=== PATIENT | female | born 1940 | race Caucasian/White ===

== ENCOUNTER 2019-05-13 00:39 | Inpatient (IN) ==
--- NOTE | 2019-05-13 00:49 | EKG Report ---
Test Performed on : 05/13/2019 00:47:29 AM Test Reason : SHORTNESS OF BREATH Blood Pressure : / mmHG Vent. Rate : 083 BPM Atrial Rate : 083 BPM P-R Int : 138 ms QRS Dur : 076 ms QT Int : 358 ms P-R-T Axes : 025 057 045 degrees QTc Int : 420 ms Normal sinus rhythm. Nonspecific ST abnormality Abnormal ECG When compared with ECG of 18-MAY-2018 19:58, QT has shortened Unconfirmed Result
[2019-05-13] MEDS ORDERED: DUONEB (A & A) INH ONE (01:06)
[2019-05-13] MEDS ORDERED: TESSALON PO ONE (01:06)
[2019-05-13] MEDS ORDERED: SOLU-MEDROL IV ONE (01:06)
[2019-05-13] MEDS ORDERED: FENTANYL IV ONE (01:07)
[2019-05-13 01:44] LABS: BASO# 0.04 X1000 (0.0-0.2); BASO% 0.3 % (0.0-0.8); EOS% 0.6 % (0.0-10.0); HEMATOCRIT 40.7 % (37.0-47.0); HEMOGLOBIN 12.5 g/dL (12.0-16.0); IMM GRAN# 0.03 X1000 (0.0-0.04); IMM GRAN% 0.2 % (0.0-0.5); LYMPH# 1.25 X1000 (1.2-3.4); MCH 27.2 PG (27-31); MCHC 30.7 g/dL (33-37); MCV 88.7 FL (81-99); MONO# 0.92 X1000 (0.11-0.59); MONO% 5.9 % (1.7-9.3); MPV 11.2 FL (7.4-10.4); NEUT# 13.27 X1000 (1.4-6.5); PLT 181 X1000 (130-400); RBC 4.59 XMIL (4.2-5.4); WBC 15.61 X1000 (4.8-10.8)
[2019-05-13 02:19] LABS: ALB/GLOB RATIO 1.6; ALBUMIN 4.2 g/dL (3.5-5.0); CALCIUM 9.3 mg/dL (8.8-10.2); CREATININE 1.3 mg/dL (0.5-0.9); POTASSIUM 5.5 mmol/L (3.5-5.1); TOTAL BILIRUBIN 0.84 mg/dL (0.20-1.00); TOTAL PROTEIN 6.8 g/dL (6.3-8.3)
[2019-05-13] MEDS ORDERED: ROCEPHIN 1 GM in NS 50 ML IV ONE (02:54)
--- NOTE | 2019-05-13 02:54 | PROVIDER DOCUMENTATION ---
This chart was entered by Sandy Deleon Scribe, acting as scribe for Mj Pena MD. HPI-Respiratory General - General Chief Complaint: Shortness of Breath Stated Complaint: CHILLS, COUGH WITH BLOOD, CHEST HURTS Time Seen by Provider: 05/13/19 01:04 Source: patient Allergies/Adverse Reactions: Patient Allergies Allergy/AdvReac Type Severity Reaction Status Date / Time codeine [Codeine] Allergy Mild Unknown Verified 10/29/18 12:36 Home Medications: Home Medication List Medication Instructions Recorded Confirmed Last Taken Type Levothyroxine [Synthroid] 100 microgm PO AC 07/12/12 10/29/18 05/18/18 History Metoprolol [Lopressor] 50 mg PO DAILY 07/12/12 10/29/18 05/18/18 History Allopurinol [Zyloprim] 100 mg PO DAILY tablet 05/19/18 10/29/18 Unknown Rx Amlodipine Besylate 1 tab PO QHS 10/29/18 10/29/18 Unknown History Bupropion HCl [Bupropion HCl Sr] 1 tab PO QAM 10/29/18 10/29/18 Unknown History Celecoxib 1 cap PO QAM 10/29/18 10/29/18 Unknown History Furosemide 20 mg PO DAILY 10/29/18 10/29/18 Unknown History Metformin HCl 1 tab PO QAM 10/29/18 10/29/18 Unknown History Potassium Chloride E.r. [Klor-Con] 20 meq PO DAILY 10/29/18 10/29/18 Unknown History - History of Present Illness-Resp Nature of Presenting Problem: 79yof presents to ED cc SOB, cough with blood sputum, chest pain that radiates to neck, shoulder and upper back since about 1130pm. Pt has no respiratory hx and stopped smoking years ago. Pt is afebrile upon exam. Quality of Pain: reports: sharp Severity in ED: reports: mild, moderate Onset/Duration: reports: 1-3 hours ago Timing: reports: still present, changing over time Cough Quality/Degree: reports: mild, blood streaked sputum Current Respiratory Medication Therapy: Initiated see nurses note Modifying Factors: worse with: coughing, deep breath Associated Symptoms: reports: chest pain/soreness, cough, hurts to breathe, shortness of breath, wheezing Similar Symptoms Previously?: No Recently seen or treated by another doctor?: No Review of Systems - Adult - REVIEW OF SYSTEMS - ADULT Constitutional: reports: see HPI. denies: chills, fever, fatique Eyes: reports: no symptoms reported Ears, Nose, Mouth & Throat: reports: no symptoms reported Cardiovascular: reports: see HPI, chest pain. denies: palpitations Respiratory: reports: see HPI, cough, shortness of breath, wheezing Gastrointestinal: reports: no symptoms reported Genitourinary: reports: no symptoms reported Musculoskeletal: reports: see HPI, joint pain (left shoulder), neck pain Integumentary: reports: no symptoms reported Neurological: reports: no symptoms reported Psychiatric: reports: no symptoms reported Endocrine: reports: no symptoms reported Hematologic/Lymphatic: reports: no symptoms reported Allergic/Immunologic: reports: no symptoms reported All Other Systems: Reviewed and Negative Past History - Adult - PAST MEDICAL HISTORY-ADULT Review of Records: reports: Nursing Assessment Review, Medications Reviewed, Social history reviewed & non-contributory. Major Childhood Illnesses: reports: denies history Cardiovascular: reports: denies history Respiratory: reports: denies history Gastrointestinal: reports: denies history Obstetrical/Gynecological: reports: denies history Genitourinary: reports: denies history Musculoskeletal: reports: denies history Neurological: reports: denies history Psychiatric: reports: denies history Endocrine/Immune: reports: denies history Other Conditions: reports: denies history - IMMUNIZATION STATUS Childhood Immunizations: See Nurse Assessment Flu Vaccine: See Nurse Assessment - FAMILY HISTORY Family History: reviewed, not pertinent - SOCIAL HISTORY Smoking: quit greater than 1 year Physical Exam-General - PHYSICAL EXAM-ADULT Initial Vital Signs Reviewed: Yes - CONSTITUTIONAL General Appearance: alert, mild distress. negative: anxious, combative - EYES Eyes: PERRL/EOMI, pink conjunctivae. negative: photophobia - HEAD, EARS, NOSE, MOUTH & THROAT HENMT: normocephalic/atraumatic, moist mucous membranes. negative: angioedema - RESPIRATORY Respiratory: chest non-tender, normal breath sounds, wheezing - CARDIOVASCULAR Cardiovascular: normal peripheral pulses, regular rate, rhythm, no edema. neg ative: bradycardia, tachycardia - GASTROINTESTINAL (ABDOMEN) Abdominal Exam: normal bowel sounds, non tender, soft. negative: rebound - MUSCULOSKELETAL Back Exam: normal inspection, no CVA tenderness, no vertebral tenderness Extremity: normal inspection. negative: deformity - SKIN Integumentary: normal color. negative: diaphoresis, jaundice - PSYCHIATRIC Psych/Mental Status: normal mood/affect, oriented x 3. negative: anxious, disheveled - HEART Score HEART Score: History: Moderately Suspicious HEART Score: ECG: Non-Specific Repolarization Disturbance/LBBB/PM HEART Score: Age: > or = 65 Years HEART Score: Risk Factors for Atherosclerotic Disease: 1 or 2 Risk Factors Progress - PLAN OF CARE/RESULTS Progress/Plan/Lab Results: Vital Signs - 8 hr 05/13/19 01:09 05/13/19 01:19 Temperature 98.6 F Pulse Rate 85 87 Respiratory Rate 33 H 16 Blood Pressure 181/133 O2 Sat by Pulse Oximetry 92 L 92 L Laboratory Results - last 24 hr 05/13/19 05/13/19 05/13/19 01:25 01:25 01:25 WBC 15.61 H RBC 4.59 Hgb 12.5 Hct 40.7 MCV 88.7 MCH 27.2 MCHC 30.7 L RDW Std Deviation 17.0 H Plt Count 181 MPV 11.2 H Immature Gran % (Auto) 0.2 Neut % (Auto) 85.0 H Lymph % (Auto) 8.0 L Perkins % (Auto) 5.9 Eos % (Auto) 0.6 Baso % (Auto) 0.3 Immature Gran # (Auto) 0.03 Neut # (Auto) 13.27 H Lymph # (Auto) 1.25 Perkins # (Auto) 0.92 H Eos # (Auto) 0.10 Baso # (Auto) 0.04 Sodium 139 Potassium 5.5 H Chloride 103 Carbon Dioxide 20 L Anion Gap 16 BUN 19 Creatinine 1.3 H Estimated GFR/1.73 m2 40 BUN/Creatinine Ratio 15 Glucose 150 H Calculated Osmolality 283 Calcium 9.3 Total Bilirubin 0.84 AST 15 ALT 12 Alkaline Phosphatase 108 H Troponin T Tni-O-Whugdotipbo Pept 1528 H Total Protein 6.8 Albumin 4.2 Globulin 2.6 Albumin/Globulin Ratio 1.6 05/13/19 01:25 WBC RBC Hgb Hct MCV MCH MCHC RDW Std Deviation Plt Count MPV Immature Gran % (Auto) Neut % (Auto) Lymph % (Auto) Perkins % (Auto) Eos % (Auto) Baso % (Auto) Immature Gran # (Auto) Neut # (Auto) Lymph # (Auto) Perkins # (Auto) Eos # (Auto) Baso # (Auto) Sodium Potassium Chloride Carbon Dioxide Anion Gap BUN Creatinine Estimated GFR/1.73 m2 BUN/Creatinine Ratio Glucose Calculated Osmolality Calcium Total Bilirubin AST ALT Alkaline Phosphatase Troponin T < 0.010 Qmt-O-Fvqzcdmtgsx Pept Total Protein Albumin Globulin Albumin/Globulin Ratio Orders Category Date Time Status Nursing- Obtain EKG ONCE Care 05/13/19 01:05 Active CHEST-1 VIEW [RAD] Stat Exams 05/13/19 01:05 Taken BLOOD CULTURE [BLDCUL] Stat Lab 05/13/19 02:41 Results CBC WITH ELECTRONIC DIFF [HEME] Stat Lab 05/13/19 01:25 Completed COMPREHENSIVE METABOLIC PANEL [CHEM] Stat Lab 05/13/19 01:25 Completed INFLUENZA SCREEN A/B Stat Lab 05/13/19 02:25 Received LACTATE, PLASMA [CHEM] Stat Lab 05/13/19 02:41 Received PRO B-NATRIURETIC PEPTIDE Stat Lab 05/13/19 01:25 Completed TROPONIN T Stat Lab 05/13/19 01:25 Completed Albuterol 2.5MG/Ipratrop 0.5MG [Duoneb (A & A)] Med 05/13/19 01:06 Discontinued 3 ml INH NOW ONE Benzonatate [Tessalon] Med 05/13/19 01:06 Discontinued 200 mg PO NOW ONE Fentanyl Med 05/13/19 01:07 Discontinued 50 microgm IV NOW ONE Methylprednisolone Sod Succ [Solu-Medrol] Med 05/13/19 01:06 Discontinued 125 mg IV NOW ONE Aerosol Treatments Routine Oth 05/13/19 01:07 Active Aerosol Treatments Stat Oth 05/13/19 01:07 Active EKG [EKG] Stat Ther 05/13/19 00:43 Draft EKG [EKG] Stat Ther 05/13/19 01:05 Ordered Result Diagrams: 05/13/19 01:25 05/13/19 01:25 - EKG 1 Time of EKG reading by physician:: 01:05 EKG Read and Signed by:: Mj Pena EKG Interpretation (*Must complete 3 of following elements*): Abnormal Rate: 83 Rhythm: NSR ST Wave: non-specific ST changes Departure - Departure Date of Disposition Decision: 05/13/19 Time of Disposition Decision: 02:54 DIAGNOSIS: Pneumonia Qualifiers: Pneumonia type: due to unspecified organism Laterality: left Lung location: upper lobe of lung Qualified Code(s): J18.1 - Lobar pneumonia, unspecified organism Disposition: ADMITTED INPATIENT 09 Certified Medical Emergency: Emergent Condition: Stable Additional Instructions: ED Follow Up Instructions: You have been treated by a care provider in the Emergency Department. These instructions are being provided to you so you can have an understanding of how to care for yourself upon discharge. Upon discharge from the Emergency Departme nt, you are responsible for making arrangements for follow-up care by a physician of your choice. Take all prescribed medications as directed. Return to the Emergency Department immediately for any new or worsening symptoms. You may call the Physician Referral phone number at [phone] to obtain a list of Physicians who are taking new patients. Referrals and Follow-Ups: Demetra Davis MD [Primary Care Provider] - - Critical Care Note This patient required my direct & personal management of CC.: No Attestation - Physician/ ABRAHAM Attestation Patient care was provided by Advanced Practice Provider:: No The physician spent face to face time with patient:: Yes Advanced Practice Provider documentation review:: Supervising physician onsite and consulted in the evaluation and care of this patient. The physician did have a face to face encounter with the patient. This chart was documented by the indicated scribe, (Sandy Deleon Scribe) and accurately reflects the services I performed and decisions made by me, Mj Pena MD, as attested by the provider's signature.
[2019-05-13] MEDS ORDERED: ZITHROMAX 500 MG/NS 500 MG/250 ML IVPB IV ONE (02:55)
[2019-05-13 03:41] LABS: INR 1.09; PROTIME 14.2 Seconds (11.0-16.0)
[2019-05-13 03:42] LABS: PTT 27.6 Seconds (22.3-41.8)
[2019-05-13] MEDS ORDERED: KAYEXALATE PO ONE (04:21)
[2019-05-13 04:53] LABS: BASO# 0.02 X1000 (0.0-0.2); BASO% 0.1 % (0.0-0.8); HEMATOCRIT 36.2 % (37.0-47.0); HEMOGLOBIN 11.2 g/dL (12.0-16.0); IMM GRAN# 0.04 X1000 (0.0-0.04); IMM GRAN% 0.2 % (0.0-0.5); LYMPH# 0.55 X1000 (1.2-3.4); LYMPH% 3.3 % (20.5-51.1); MCH 27.5 PG (27-31); MCHC 30.9 g/dL (33-37); MCV 88.7 FL (81-99); MONO# 0.62 X1000 (0.11-0.59); MONO% 3.7 % (1.7-9.3); MPV 11.3 FL (7.4-10.4); NEUT# 15.62 X1000 (1.4-6.5); NEUT% 92.7 % (42.2-75.2); PLT 155 X1000 (130-400); RBC 4.08 XMIL (4.2-5.4); RDW 16.7 % (11.5-14.5); WBC 16.85 X1000 (4.8-10.8)
[2019-05-13 05:19] LABS: ALB/GLOB RATIO 1.3; ALBUMIN 3.6 g/dL (3.5-5.0); CALCIUM 8.8 mg/dL (8.8-10.2); CREATININE 1.3 mg/dL (0.5-0.9); POTASSIUM 4.6 mmol/L (3.5-5.1); TOTAL BILIRUBIN 0.8 mg/dL (0.20-1.00); TOTAL PROTEIN 6.4 g/dL (6.3-8.3)
--- NOTE | 2019-05-13 06:17 | Diag Imaging Result Doc PS360 ---
EXAM: CHEST-1 VIEW HISTORY: sob, cp TECHNIQUE: Single view COMPARISON: 05/18/2018 FINDINGS: The lungs are well expanded. Interval development of the left upper lobe pneumonia. The heart is mildly prominent. No pleural effusions identified. IMPRESSION: Left upper lobe pneumonia. Electronically signed by Johnnie Walton 05/13/2019 6:14 AM
--- NOTE | 2019-05-13 07:00 | HISTORY AND PHYSICAL ---
CHIEF COMPLAINT: Hemoptysis, she has had for about 1 day or less. HISTORY OF PRESENT ILLNESS: Ms. Millicent Cooley is a 79-year-old female, who has a history of diabetes mellitus, hypertension, and hypothyroidism, as well as arthritis. She presented to the hospital because of hemoptysis. This has been for about one day or less. She also describes having chest pain, shortness of breath and wheezing along with fever and chills. The patient was seen and evaluated in the emergency room. She had a chest x-ray done with possible left upper lobe infiltrate noted. The patient has now been admitted to the floor for further management. PAST MEDICAL HISTORY: Diabetes mellitus, hypertension, arthritis and hypothyroidism. PAST SURGICAL HISTORY: She has had appendectomy, cholecystectomy, section, eye surgery and bilateral knee surgery. FAMILY HISTORY: Positive for strokes and cancer. ALLERGIES: No known drug allergies. SOCIAL HISTORY: No history of cigarette smoking. No alcohol or drug use. MEDICATIONS: Levothyroxine 100 mcg p.o. daily, metoprolol 50 mg p.o. daily, allopurinol 100 mg p.o. daily, amlodipine one tab p.o. at bedtime, bupropion 1 tab p.o. q.a.m., Celebrex one tab daily, Lasix as directed daily, metformin one tab daily, potassium chloride 20 mEq p.o. daily. REVIEW OF SYSTEMS: Constitutional: She has a fever. 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 Eyes: She has glasses. ENT: She has ringing in the ears. Cardiovascular: No chest pain. Gastrointestinal: She has some nausea. No abdominal pain. : No dysuria but has frequency. Dermatology: No skin lesions. Hematology: No bleeding problems. Musculoskeletal: She has joint pains. Psychiatric: No anxiety or depression. Endocrinology: She has diabetes and thyroid disease. Allergy/Immunology: No symptoms suggestive of allergic rhinitis. PHYSICAL EXAMINATION: VITAL SIGNS: Temperature 98.8 degrees, pulse 72, respiratory rate 18, blood pressure 128/50, oxygen saturation is 95%. HEENT: Atraumatic, normocephalic. She is anicteric. Extraocular movements intact. No significant oral lesions noted. NECK: No lymphadenopathy or thyromegaly. CARDIOVASCULAR: S1, S2. RESPIRATORY: She has evidence of good air entry bilaterally. ABDOMEN: Soft, nontender. No masses felt. EXTREMITIES: No evidence of edema. CENTRAL NERVOUS SYSTEM: No obvious focal deficits noted. LABS: WBC 16.85, hematocrit 36.2, platelet count 155,000, INR 1.09, sodium 138, potassium 4.6, chloride 104, bicarb 19, BUN 19, creatinine 1.3, glucose 170, and proBNP 1528. IMAGING STUDIES: Chest x-ray, probable left upper lobe infiltrate. ASSESSMENT AND PLAN: 1. Probable community-acquired pneumonia. Obtain sputum and blood cultures. Start patient on empiric antibiotic. Supplement with oxygen. Use nebulizer and bronchodilator as needed. 2. Hemoptysis. Obtain CT scan of the chest. Consult with Pulmonology. 3. Diabetes mellitus. Monitor blood sugar levels. Maintain patient on sliding scale insulin. Check hemoglobin A1c level. 4. Hypothyroidism. Check TSH as well as free T4. Continue levothyroxine. 5. Elevated proBNP level. Check 2D echo of the heart. 6. Acute kidney injury. Gentle hydration using normal saline. Follow-up on renal function. Avoid nephrotoxic agents. 7. Deep vein thrombosis prophylaxis with sequential compression devices. 8. Gastrointestinal prophylaxis with proton pump inhibitor. cc: Ryder Aleman MD [facility]
[2019-05-13] MEDS: NS 1,000 ML IV SCH (07:24)
[2019-05-13] MEDS: SYNTHROID PO SCH ×3 (07:24→18:04)
[2019-05-13] MEDS: PROTONIX PO SCH (07:24)
[2019-05-13] MEDS: HUMALOG SUBQ SCH ×4 (07:25→21:54)
[2019-05-13 07:48] LABS: URINE SOURCE CLEAN CATCH
[2019-05-13 07:51] LABS: BILIRUBIN URINE NEGATIVE (NEGATIVE); BLOOD URINE TRACE (NEGATIVE); COLOR YELLOW; GLUCOSE URINE NEGATIVE (NEGATIVE); KETONE URINE NEGATIVE (NEGATIVE); LEUKOCYTES URINE SMALL (NEGATIVE); NITRITE URINE NEGATIVE (NEGATIVE); PH URINE 5.5; PROTEIN URINE NEGATIVE (NEGATIVE); SP GRAVITY URINE 1.022; TURBIDITY URINE CLEAR (CLEAR); UROBILINOGEN URINE NORMAL (NORMAL)
[2019-05-13 07:52] LABS: UR EPITHELIAL CELLS <10 /HPF (<10); URINE BACTERIA NEGATIVE /HPF; URINE RBC <10 /HPF (<10); URINE WBC <10 /HPF (<10)
[2019-05-13] MEDS: ZYLOPRIM PO SCH (08:39)
[2019-05-13] MEDS: LOPRESSOR PO SCH (08:39)
[2019-05-13] MEDS: WELLBUTRIN SR PO SCH (08:39)
[2019-05-13] MEDS ORDERED: LASIX PO SCH (09:00)
--- NOTE | 2019-05-13 11:02 | Diag Imaging Result Doc PS360 ---
EXAM: CT THORAX W/O CONTRAST HISTORY: hemoptysis TECHNIQUE: CT chest without contrast COMPARISON: 05/18/2018 FINDINGS: There is a tiny left pleural effusion. No right effusion. The heart is mildly enlarged. No aortic aneurysm. There calcified mediastinal and hilar lymph nodes as well as several small noncalcified mediastinal nodes. There are dense infiltrates with air bronchograms in the left upper lobe with smaller infiltrates scattered in the other lobes. No bronchiectasis. Limited images through the upper abdomen reveal a cholecystectomy. IMPRESSION: Pneumonia most pronounced in the left upper lobe This exam was performed using automated exposure control, adjustment of mA or kV according to patient size, and/or use of iterative reconstruction technique. Electronically signed by Johnnie Walton 05/13/2019 10:59 AM
--- NOTE | 2019-05-13 11:34 | PROGRESS NOTE ---
DATE: 05/13/2019 The patient is a 79-year-old, white female, a patient of Dr. Davis, who presented to the emergency room with some shortness of breath and mild hemoptysis. She was found to have left upper lobe infiltrate suggestive of a community-acquired pneumonia. She was admitted for further evaluation and treatment. Chest x-ray showed left upper lobe infiltrate, as well as CT scan. There was no suggestive of a mass. She was feeling fairly good on and went to her grandson's for Thanksgiving. She started to cough more on Tuesday and had some hemoptysis, causing her to present to the emergency room last night. She was admitted by the hospitalist. VITAL SIGNS: Temperature 97.9 degrees, heart rate 74, respirations 20, blood pressure 124/49, O2 saturation 98% on 2 liters nasal oxygen. She has some discomfort in the left upper chest with respiration. The pain radiates a little to her neck and shoulder. LABORATORY: Hemoglobin 11.2, hematocrit 36.2, white blood count 16,800 with 92.7% neutrophils. BUN was 19, creatinine 1.3, potassium 4.6, glucose 224. Plasma lactate elevated at 2.5. There are a few rhonchi in the right upper lung field on auscultation. She has a mild to moderate cough. Abdomen is soft. There is no history of pneumonia. She has had no upper respiratory infection. IMPRESSION: Left upper lobe community-acquired pneumonia. PLAN: Nebulizer treatments with albuterol, antibiotics with Rocephin and Zithromax. Sputum culture was ordered as well as blood cultures. cc: MD Ryder Vu MD
[2019-05-13] MEDS: ROBITUSSIN PO SCH ×3 (13:34→21:54)
[2019-05-13] MEDS: ALBUTEROL NEB INH SCH ×2 (15:27→20:52)
[2019-05-14] MEDS: ROBITUSSIN PO SCH ×6 (01:53→20:22)
[2019-05-14] MEDS: ALBUTEROL NEB INH SCH ×4 (03:12→21:55)
[2019-05-14] MEDS: ROCEPHIN 1 GM in NS 50 ML IV SCH (03:50)
[2019-05-14] MEDS: ZITHROMAX 500 MG/NS 500 MG/250 ML IVPB IV SCH (03:50)
[2019-05-14] MEDS: PROTONIX PO SCH (06:21)
[2019-05-14] MEDS: SYNTHROID PO SCH ×3 (06:22→17:33)
[2019-05-14] MEDS: NS 1,000 ML IV SCH (06:23)
[2019-05-14] MEDS: HUMALOG SUBQ SCH ×4 (06:24→22:11)
--- NOTE | 2019-05-14 07:39 | CONSULTATION ---
DATE OF CONSULTATION: 05/13/2019 CHIEF COMPLAINT: Cough and hemoptysis. HISTORY OF PRESENT ILLNESS: This is a 79-year-old female with a complaint of cough and hemoptysis. She states she noticed blood in her sputum less than 1 day ago. Recent chest x-ray revealed left upper lobe infiltrate. Recent chest CT confirmed left upper lobe pneumonia with calcified mediastinal and hilar lymph nodes as well as several small noncalcified mediastinal lymph nodes. PAST MEDICAL HISTORY: 1. Diabetes mellitus. 2. Hypertension. 3. Arthritis. 4. Hypothyroidism. PAST SURGICAL HISTORY: Appendectomy, cholecystectomy, section, eye surgery, and bilateral knee surgery. FAMILY HISTORY: Positive for strokes and cancer. ALLERGIES: No known drug allergies. SOCIAL HISTORY: Denies tobacco, alcohol or illicit drug use. MEDICATIONS: Please see reconciliation list. REVIEW OF SYSTEMS: A 10-point review of systems was obtained and the pertinent is listed in the HPI, otherwise noncontributory. PHYSICAL EXAMINATION: Vital signs: Temperature 98.8, pulse 72, respirations 18, blood pressure 128/50, O2 saturation 95%. HEENT: Head is normocephalic and atraumatic. She is anicteric. Extraocular movements were intact. Neck: Supple. Trachea midline. Cardiovascular: S1 and S2 appreciated. No gallops, murmurs or rubs. Respiratory: Nonlabored. Diminished entry. Abdomen: Nontender, soft. Positive bowel sounds in all 4 quadrants. Extremities: Without cyanosis, clubbing or edema. Neurologic: Alert and oriented x3. DIAGNOSTIC DATA: White blood cells 16.85, hematocrit 36.2, platelets 155,000. INR is 1.09. Sodium is 138, potassium 4.6, chloride 104, bicarb 19, BUN is 19, creatinine 1.3, glucose 170. ProBNP is 1528. Imaging: As mentioned in the HPI. ASSESSMENT AND PLAN: 1. Probable community acquired pneumonia. Continue supplemental O2, antibiotics, and bronchodilators. 2. Hemoptysis. CT obtained, left upper lobe pneumonia. Continue antibiotics. 3. Diabetes mellitus type 2. We will monitor with fingerstick blood sugars and sliding scale insulin. 4. Hypothyroidism. Continue levothyroxine. 5. Continue DVT prophylaxis with SCDs. 6. Continue GI prophylaxis. Thank you for the courtesy of this consult. Dictated by ALIRIO Parkinson for MD Hernan Pedraza#: [id number] cc: ALIRIO Parkinson MD Clement Okinedo, MD
[2019-05-14 08:05] LABS: BASO# 0.01 X1000 (0.0-0.2); BASO% 0.1 % (0.0-0.8); EOS# 0.01 X1000 (0.0-0.7); EOS% 0.1 % (0.0-10.0); HEMATOCRIT 33.1 % (37.0-47.0); HEMOGLOBIN 10.2 g/dL (12.0-16.0); IMM GRAN# 0.02 X1000 (0.0-0.04); IMM GRAN% 0.2 % (0.0-0.5); LYMPH# 1.77 X1000 (1.2-3.4); LYMPH% 14.1 % (20.5-51.1); MCH 27.4 PG (27-31); MCHC 30.8 g/dL (33-37); MONO# 0.88 X1000 (0.11-0.59); MPV 11.5 FL (7.4-10.4); NEUT# 9.82 X1000 (1.4-6.5); NEUT% 78.5 % (42.2-75.2); PLT 147 X1000 (130-400); RBC 3.72 XMIL (4.2-5.4); RDW 16.8 % (11.5-14.5); WBC 12.51 X1000 (4.8-10.8)
[2019-05-14 08:24] LABS: HEMOGLOBIN A1C 5.4 % (4.8-6.0)
[2019-05-14 08:28] LABS: IRON SATURATION 6 %; TIBC 280 ug/dL; TOTAL IRON 16 ug/dL (49-151); UNBOUND IRON 264 ug/dL (112-346)
--- NOTE | 2019-05-14 08:29 | ECHO REPORT ---
ORDER DATE: 05/13/2019 INTERPRETING PHYSICIAN: Dr. Riley REQUESTING PHYSICIAN: CLINICAL INDICATIONS: This is a 79-year-old female with hypertension, chest pain, pneumonia. M-MODE MEASUREMENTS: Right ventricle: cm. Left ventricle end diastole: 5.7 cm. Left ventricle end systole: 3.8 cm. Posterior wall: 0.9 cm. Interventricular septum: 0.9 cm. Left atrium: 4.4 cm. Aortic root: 3.1 cm. SUMMARY OF 2-DIMENSIONAL IMAGIN. The study is difficult. The left ventricular function appears to be grossly normal, visually estimated at 60%. 2. The left atrium appears to be moderately enlarged. 3. The aortic valve looks normal. Color flow mapping is unremarkable. 4. Mitral valve shows mild to moderate degree of regurgitation. 5. The pulse wave Doppler of mitral inflow is normal. 6. Tissue Doppler of septal and lateral mitral annulus averages 13 cm. 7. There is no diastolic dysfunction. 8. Pulmonic valve shows minimal degree of regurgitation. 9. Tricuspid valve shows mild to moderate degree of regurgitation. 10.Pulmonary pressure is estimated at 62 mmHg. 11.There is no pericardial effusion, mass or thrombus. 12.Pulmonary venous flow is normal. Clinical correlation is recommended. cc: MD Ryder Minor MD Jagan Reddy, MD MTDD
[2019-05-14 08:33] LABS: ALBUMIN 3.2 g/dL (3.5-5.0); CALCIUM 8.9 mg/dL (8.8-10.2); CREATININE 1.2 mg/dL (0.5-0.9); POTASSIUM 3.8 mmol/L (3.5-5.1); TOTAL BILIRUBIN 0.43 mg/dL (0.20-1.00); TOTAL PROTEIN 6.3 g/dL (6.3-8.3)
[2019-05-14] MEDS: WELLBUTRIN SR PO SCH (08:34)
[2019-05-14] MEDS: LOPRESSOR PO SCH (08:34)
[2019-05-14] MEDS: ZYLOPRIM PO SCH (08:34)
[2019-05-14 09:02] LABS: TSH 2.24 uIUmL (0.27-4.20)
--- NOTE | 2019-05-14 10:33 | PROGRESS NOTE ---
DATE: 05/14/2019 SUBJECTIVE: Patient resting comfortably in bed, not in any obvious distress. OBJECTIVE: Vital Signs: Temperature is 97.8 degrees, pulse is 52, respirations 16, blood pressure is 130/58, oxygen saturation is 100%. HEENT: She is atraumatic, normocephalic. Cardiovascular: S1, S2. Respiratory: Has evidence of good air entry bilaterally. Abdomen: Soft, nontender. No masses felt. Extremities: No evidence of edema. Central Nervous System: No obvious focal noted. LABORATORY DATA: WBC is 12.51, hemoglobin is 10.2, hematocrit 33.1, with a platelet count of 147,000. Sodium is 143, potassium is 3.8, chloride is 107, bicarb is 21, BUN is 5, creatinine is 1.2. Chest CT shows evidence of pneumonia, most pronounced in the left upper lobe. ASSESSMENT AND PLAN: 1. Community-acquired pneumonia. Continue intravenous antibiotics, and follow up on cultures. Supplemental oxygen as well as nebulized bronchodilators. 2. Hemoptysis, most likely secondary to pneumonia. Pulmonology is on board. 3. Diabetes mellitus. Continue blood sugar monitoring as well as sliding scale insulin. 4. Hypothyroidism. Continue levothyroxine. 5. Elevated proBNP level. A 2-dimensional echocardiogram shows normal left ventricular function, which appears grossly normal, and estimated ejection fraction about 60%. 6. Acute kidney injury, improved. Continue intravenous hydration, and follow up on the patient's renal function. 7. Deep vein thrombosis prophylaxis. Sequential compression devices. 8. Gastrointestinal prophylaxis. Proton pump inhibitor. cc: MD Yonis Mars MD
--- NOTE | 2019-05-14 18:58 | PROGRESS NOTE ---
DATE: 05/14/2019 SUBJECTIVE: A 79-year-old white female admitted to the hospital on 05/13/2019 with hemoptysis and elevated white cell count with left upper lobe pneumonia with air bronchograms. The patient is doing better, dyspnea on exertion. Denies any chest pain, any productive cough. PAST MEDICAL HISTORY: Reviewed. PAST SURGICAL HISTORY: Reviewed. MEDICINES: Reviewed. ALLERGIES: Codeine. OBJECTIVE: Vital signs: Temperature is 97 degrees, pulse is 62, blood pressure 133/70, 2 L nasal cannula 98%. General: Mild respiratory distress with exertion. Chest: Bilateral air entry. Some bronchial breath sounds in the left upper part of the chest. Heart: Distant heart sounds. Abdomen: Belly is soft, nontender. Good bowel sounds. Neurologic: No obvious neurological deficits. INVESTIGATIONS: White cell count 12, hematocrit 33, platelets 147,000. Sodium 143, potassium 3.8, BUN 25, creatinine 1.2, glucose 66. LFTs were normal. Albumin 3.2. Folate is 5.8. TSH is normal. Influenza screen was negative. Chest CT: Pneumonia, most in the left upper lobe. Blood cultures are pending. ASSESSMENT: 1. Left upper lobe pneumonia. 2. Pickwickian syndrome. 3. Gout. 4. Hypothyroidism. 5. Type 2 diabetes. PLAN OF CARE: IV ceftriaxone, Zithromax. Continue Synthroid 100 mcg daily. For hypertension, on metoprolol 50 daily. Gout, on allopurinol 100 daily. Continue cough medicine with Robitussin. Needs DVT and GI prophylaxis with low-molecular weight heparin and Nexium and initiate vaccination protocol prior to the discharge. Continue to monitor clinical course every other day. LEVEL OF DOCUMENTATION: 35 minutes. cc: Yonis Davis MD
[2019-05-14] MEDS: SODIUM CHLORIDE 0.9% INJ SCH (19:03)
[2019-05-14] MEDS: LOVENOX SUBQ SCH (19:03)
[2019-05-14] MEDS: PROTONIX IV SCH (19:03)
[2019-05-14] MEDS: FOLIC ACID 5 MG in NS 50 ML IV SCH (22:10)
[2019-05-15] MEDS: ROBITUSSIN PO SCH ×6 (01:43→21:17)
[2019-05-15] MEDS: NS 1,000 ML IV SCH ×2 (01:47→06:18)
[2019-05-15] MEDS: ALBUTEROL NEB INH SCH ×4 (03:41→22:41)
[2019-05-15] MEDS: ROCEPHIN 1 GM in NS 50 ML IV SCH (04:12)
[2019-05-15] MEDS: ZITHROMAX 500 MG/NS 500 MG/250 ML IVPB IV SCH (05:32)
[2019-05-15] MEDS: HUMALOG SUBQ SCH ×4 (06:19→21:17)
[2019-05-15] MEDS: SYNTHROID PO SCH (06:30)
[2019-05-15 07:36] LABS: BASO# 0.02 X1000 (0.0-0.2); BASO% 0.2 % (0.0-0.8); EOS# 0.35 X1000 (0.0-0.7); HEMATOCRIT 33.1 % (37.0-47.0); LYMPH# 1.66 X1000 (1.2-3.4); LYMPH% 18.8 % (20.5-51.1); MCH 27.1 PG (27-31); MCHC 30.2 g/dL (33-37); MCV 89.7 FL (81-99); MONO# 0.81 X1000 (0.11-0.59); MONO% 9.2 % (1.7-9.3); MPV 11.1 FL (7.4-10.4); NEUT# 5.98 X1000 (1.4-6.5); NEUT% 67.8 % (42.2-75.2); PLT 147 X1000 (130-400); RBC 3.69 XMIL (4.2-5.4); RDW 16.9 % (11.5-14.5); WBC 8.82 X1000 (4.8-10.8)
--- NOTE | 2019-05-15 07:54 | Diag Imaging Result Doc PS360 ---
CHEST-1 VIEW - 05/15/2019 INDICATION: SOB COMPARISON: 05/13/2019 FINDINGS: There is a dense focal infiltrate in the left upper lobe. This is similar to prior. Heart size and pulmonary vascularity is top normal. No pneumothorax or pleural effusion. IMPRESSION: Right upper lobe infiltrate/pneumonia. Little change from prior. Electronically signed by Gallito Majano 05/15/2019 7:52 AM
[2019-05-15] MEDS: ZYLOPRIM PO SCH (08:35)
[2019-05-15] MEDS: WELLBUTRIN SR PO SCH (08:35)
[2019-05-15] MEDS: LOPRESSOR PO SCH (08:35)
[2019-05-15] MEDS: LOVENOX SUBQ SCH (17:56)
[2019-05-15] MEDS: SODIUM CHLORIDE 0.9% INJ SCH (17:56)
[2019-05-15] MEDS: PROTONIX IV SCH (17:57)
[2019-05-15] MEDS: FOLIC ACID 5 MG in NS 50 ML IV SCH (21:18)
[2019-05-16] MEDS: ROBITUSSIN PO SCH ×6 (01:41→21:00)
--- NOTE | 2019-05-16 02:05 | PROGRESS NOTE ---
DATE: 05/15/2019 SUBJECTIVE: The patient is a little bit short of breath on exertion. Symptoms are improving. No chest pain and chest x-ray is improving. OBJECTIVE: Vital signs: Temperature is 98 degrees, pulse is 80, blood pressure 116/59. HEENT: Within normal limits. Neck: Supple. No lymphadenopathy. Chest: Bilateral air entry. Heart: Sounds are regular. Abdomen: Belly is soft, nontender. No obvious deficits. INVESTIGATIONS: CBC: White cell count 8.8, hematocrit 33, platelets 147,000. Blood cultures are negative. ASSESSMENT AND PLAN: 1. Left upper lobe pneumonia, slowly getting better. Continue on ceftriaxone and Zithromax. 2. Folic acid deficiency. IV folic acid. 3. Gout, on Zyloprim. 4. Deep venous thrombosis prophylaxis, gastrointestinal prophylaxis as per order sheet. 5. Out of the bed. Incentive spirometry. LEVEL OF DOCUMENTATION: 25 minutes. cc: Yonis Davis MD
[2019-05-16] MEDS: ROCEPHIN 1 GM in NS 50 ML IV SCH (03:41)
[2019-05-16] MEDS: ALBUTEROL NEB INH SCH ×4 (03:58→21:21)
[2019-05-16] MEDS: ZITHROMAX 500 MG/NS 500 MG/250 ML IVPB IV SCH (04:46)
[2019-05-16] MEDS: NS 1,000 ML IV SCH (07:27)
[2019-05-16] MEDS: SYNTHROID PO SCH (07:27)
[2019-05-16] MEDS: HUMALOG SUBQ SCH ×4 (07:28→20:42)
[2019-05-16] MEDS: LOPRESSOR PO SCH (08:36)
[2019-05-16] MEDS: WELLBUTRIN SR PO SCH (08:36)
[2019-05-16] MEDS: ZYLOPRIM PO SCH (08:36)
[2019-05-16] MEDS ORDERED: FLU VACCINE IM ONE (12:55)
[2019-05-16] MEDS: LOVENOX SUBQ SCH (17:21)
[2019-05-16] MEDS: PROTONIX IV SCH (17:21)
[2019-05-16] MEDS: SODIUM CHLORIDE 0.9% INJ SCH (17:21)
[2019-05-16] MEDS: FOLIC ACID 5 MG in NS 50 ML IV SCH (21:41)
[2019-05-17] MEDS: ROBITUSSIN PO SCH ×6 (02:30→21:12)
[2019-05-17] MEDS: ALBUTEROL NEB INH SCH ×4 (03:31→21:38)
[2019-05-17] MEDS: ROCEPHIN 1 GM in NS 50 ML IV SCH (04:32)
[2019-05-17] MEDS: ZITHROMAX 500 MG/NS 500 MG/250 ML IVPB IV SCH (05:21)
[2019-05-17] MEDS: SYNTHROID PO SCH (06:20)
[2019-05-17] MEDS: HUMALOG SUBQ SCH ×4 (06:20→21:13)
--- NOTE | 2019-05-17 07:15 | Diag Imaging Result Doc PS360 ---
EXAM: CHEST-1 VIEW 05/17/2019 HISTORY: SOB TECHNIQUE: AP portable upright at 0550 COMMENT: The perihilar and apical opacity in the left upper lobe seen on 05/15/2019 has improved slightly. Otherwise are has been no significant change. IMPRESSION: Improving left upper lobe pneumonia. Electronically signed by Jean Carlos Aguilar 05/17/2019 7:12 AM
--- NOTE | 2019-05-17 07:27 | PROGRESS NOTE ---
DATE: 05/16/2019 SUBJECTIVE: The patient is doing better. Decreased shortness of breath. REVIEW OF SYSTEMS: None reported. PHYSICAL EXAMINATION: Vital signs: Temperature is 98 degrees, pulse 79, blood pressure is 143/66. HEENT: Within normal limits. Neck: Supple. Chest: Clear. Heart: Sounds are regular. ASSESSMENT AND PLAN: 1. Left upper lobe pneumonia is improving. We will repeat the chest x-ray in the morning. We will limited the phlebotomy workup since clinically she is improving. 2. Folic acid deficiency. Continue replacement. 3. Continue present treatment and discontinue fluids since the patient is going to the bathroom too often, and will follow up. LEVEL OF DOCUMENTATION: 25 minutes. cc: Yonis Davis MD
--- NOTE | 2019-05-17 08:57 | PROVIDER PROGRESS NOTE ---
Progress Note Pulmonary additional note: Case assessed. Full note to follow.
[2019-05-17] MEDS: WELLBUTRIN SR PO SCH (09:46)
[2019-05-17] MEDS: ZYLOPRIM PO SCH (09:46)
[2019-05-17] MEDS: LOPRESSOR PO SCH (09:46)
[2019-05-17] MEDS: LOVENOX SUBQ SCH (17:35)
[2019-05-17] MEDS: PROTONIX IV SCH (17:35)
[2019-05-17] MEDS: FOLIC ACID 5 MG in NS 50 ML IV SCH (21:13)
[2019-05-18] MEDS: ROBITUSSIN PO SCH ×3 (01:34→09:32)
[2019-05-18] MEDS: ALBUTEROL NEB INH SCH ×2 (03:10→09:11)
[2019-05-18] MEDS: ROCEPHIN 1 GM in NS 50 ML IV SCH (04:30)
[2019-05-18] MEDS: ZITHROMAX 500 MG/NS 500 MG/250 ML IVPB IV SCH (05:02)
--- NOTE | 2019-05-18 06:47 | PROGRESS NOTE ---
DATE: 05/17/2019 SUBJECTIVE: The patient is doing very well and decreased shortness of breath. PHYSICAL EXAMINATION: Vital signs: Temperature is 99.7 degrees, pulse 86, vitals are stable. HEENT: Within normal limits. Neck: Supple. Chest: Decreased signs of consolidation. Neurologic: No obvious neurological deficits. IMAGING: Chest x-ray improving left upper lobe pneumonia. ASSESSMENT AND PLAN: Left upper lobe pneumonia, improving and if she continues to do well, will discharge in the morning on outpatient antibiotics. Continue present treatment. LEVEL OF DOCUMENTATION: 25 minutes. cc: Yonis Davis MD
[2019-05-18] MEDS: SYNTHROID PO SCH (06:48)
[2019-05-18 07:52] VITALS: BP 154/94
[2019-05-18] MEDS ORDERED: PREVNAR 13 IM ONE (08:24)
[2019-05-18] MEDS: HUMALOG SUBQ SCH (09:31)
[2019-05-18] MEDS: LOPRESSOR PO SCH (09:32)
[2019-05-18] MEDS: WELLBUTRIN SR PO SCH (09:32)
[2019-05-18] MEDS: ZYLOPRIM PO SCH (09:32)
--- NOTE | 2019-05-20 20:51 | DISCHARGE SUMMARY ---
ADMISSION DATE: 05/13/2019 DISCHARGE DATE: 05/18/2019 DISCHARGING DIAGNOSIS: Left upper lobe pneumonia. SECONDARY DIAGNOSIS: 1. Type 2 diabetes. 2. Hypertension. 3. Osteoarthritis. 4. Hypothyroidism. BRIEF HISTORY: Please see the H and P that was done on 05/13/2019. In brief she is a 79-year-old white female with above problems came into the hospital with 1-day history of hemoptysis, cough, fever, shortness of breath. Chest x-ray showed left upper lobe pneumonia. CT of the chest was done in light of hemoptysis. There is no endobronchial obstruction other than a bronchograms. The patient was initiated community-acquired pneumonia treatment protocol. Follow up chest x-ray is improved. Blood cultures were negative. Influenza screen was negative. White cell count came back normal. Patient was discharged home in stable condition. LABS: At the time of discharge CBC white cell count 8.8, hematocrit 33.1, platelets 147,000. Sodium 143, potassium 3.8, BUN 25, creatinine 1.2, glucose 111, A1c 5.4, calcium 8.1. Liver function tests are normal. Albumin 3.2. Folate levels were low for which IV folic acid was given. TSH is normal. RADIOLOGY PROCEDURES: Followup chest x-ray on 05/17/2019 improving of left upper lobe pneumonia. #[address] left upper lobe pneumonia with air- bronchograms. Echocardiography report #1 LV function is 60%. Left atrium moderately enlarged. Mild to moderate MR and moderate pulmonary hypertension noted. DISCHARGE INSTRUCTIONS: 1. Flu vaccine 05/18/2019. 2. Pneumococcal 13 was given on 05/18/2019, metoprolol 50 daily, Synthroid 100 mcg daily, allopurinol 100 daily, Wellbutrin 150 daily, Celebrex 200 daily, Lasix 20 daily, metformin 500 once daily, potassium 20 mEq daily, Mucinex DM 1 puff 1 each capsule p.o. b.i.d., Levaquin 500 daily for 10 days. Follow up in my office next week. cc: Yonis Davis MD MTDD
== END 2019-05-18 12:23 | disposition home or self-care (01) | DRG 194 ==
LOC: ED 00:39 → 3N 03:48
PROVIDERS: ADMIT Internal Medicine; ATTEND Internal Medicine